=== PATIENT | male | born 1960 | race African-American/Black ===

== ENCOUNTER 2023-10-04 09:53 | Outpatient (RCR) | payer BC, SELFPAY ==
--- NOTE | 2023-09-26 10:31 | URNOTE ---
Diana has been approved as prescribed by 09/25/2023-01/18/2024 Ref #[id number]
--- NOTE | 2023-09-29 09:51 | ONC.NURNOTE ---
Dx: Adenocarcinoma of the prostate
[2023-10-04 10:06] VITALS: BP 143/90; PULSE 70; RESP 16; TEMP 35.9; O2SAT 99
== END 2024-04-01 23:59 | disposition home or self-care (01) ==
LOC: CCIC 09:53
PROVIDERS: Visit Provider Internal Medicine Hematology & Oncology
DX: C61 Malignant neoplasm of prostate (principal)
CPT/HCPCS: 96401; J9217